=== PATIENT | female | born 1995 | race Caucasian/White ===

== ENCOUNTER 2017-07-30 21:06 | Emergency (ER) | payer BC ==
[2017-07-30 21:17] VITALS: BP 132/89
--- NOTE | 2017-07-30 21:39 | EDM.PDOC ---
ED HPI GENERAL MEDICAL PROBLEM - General Chief Complaint: Chest Pain Stated Complaint: CHEST PAIN Time Seen by Provider: 07/30/17 21:39 Source of Information: Reports: Patient History Limitations: Reports: No Limitations - History of Present Illness INITIAL COMMENTS - FREE TEXT/NARRATIVE: 22-year-old female presents the ED with development of left-sided precordial chest pain rather suddenly while she was at her father's 60th birthday alliance party tonight. It did not seem to have any radiation. It is eased up substantially since she came to the ED. She had associated symptoms of feeling of her heart racing shortness of breath and numbness and tingling in her hands and feet.she' s recently been identified to have a early first trimester with a positive home test last week. She feels she would be before to 5 weeks gestation. She will be 2 para 1 and she has a 5-year-old at home. Denies cough or sputum production. Does have positive with esophageal reflux and has been using medication for this recently. Pain however seemed to be more of a pressure discomfort and no burning. 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: Other (see below) (see history of present illnessnone.) Left Chest Pain Score (Numeric/FACES): 2 - Related Data Allergies Allergy/AdvReac Type Severity Reaction Status Date / Time No Known Allergies Allergy Verified 01/28/16 19:24 Home Meds: Home Meds Escitalopram [Lexapro] 10 mg PO DAILY 07/30/17 [History] LORazepam [Ativan] 1 mg PO Q8H PRN #2 tablet 07/30/17 [Rx] LORazepam [Ativan] 1 mg PO Q8H PRN #2 tablet 07/30/17 [Rx] Past Medical History - Past Health History Medical/Surgical History: Denies 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 Denies: Fever, Chills, Malaise, Weakness, Weight Loss HEENT: Reports: No Symptoms Respiratory: Reports: Shortness of Breath, Cough. Denies: Wheezing, Pleuritic Chest Pain Cardiovascular: Reports: Chest Pain. Denies: Blood Pressure Problem (she has to present illness), Claudication, Dyspnea on Exertion, Edema, Orthopnea, Palpitations Endocrine: Reports: Fatigue GI/Abdominal: Reports: No Symptoms : Reports: Frequency Musculoskeletal: Reports: No Symptoms Skin: Reports: No Symptoms Neurological: Reports: No Symptoms Psychiatric: Reports: No Symptoms Hematologic/Lymphatic: Reports: No Symptoms Immunologic: Reports: No Symptoms ED EXAM, GENERAL - Physical Exam Exam: See Below Exam Limited By: No Limitations General Appearance: Alert, WD/WN, No Apparent Distress Eye Exam: Bilateral Eye: Normal Inspection Neck: Normal Inspection, Supple, Non-Tender, Full Range of Motion. No: Lymphadenopathy (L), Lymphadenopathy (R) Respiratory/Chest: No Respiratory Distress, Lungs Clear, Normal Breath Sounds, No Accessory Muscle Use Cardiovascular: Normal Peripheral Pulses, Regular Rate, Rhythm, No Edema, No Gallop, No Murmur Peripheral Pulses: 3+: Posterior Tibial (L), Posterior Tibial (R), Dorsalis Pedis (L), Dorsalis Pedis (R) GI/Abdominal: Normal Bowel Sounds, Soft, Non-Tender, No Organomegaly, No Distention, No Abnormal Bruit, No Mass, Pelvis Stable Back Exam: Normal Inspection, Full Range of Motion. No: CVA Tenderness (L), CVA Tenderness (R) Extremities: Normal Inspection, Normal Range of Motion, Non-Tender, No Pedal Edema Neurological: Alert, Oriented, CN II-XII Intact, Normal Cognition, Normal Gait Psychiatric: Normal Affect, Normal Mood Skin Exam: Warm, Dry, Intact, Normal Color, No Rash Course - Vital Signs Last Recorded V/S: Last Vital Signs Temp 36.6 C 07/30/17 21:15 Pulse 107 H 07/30/17 21:15 Resp 20 07/30/17 21:15 BP 132/89 07/30/17 21:15 Pulse Ox 99 07/30/17 21:15 - Radiology Interpretation Free Text/Narrative:: 22-year-old female presents the ED with sudden onset of left precordial chest pressure discomfort. This is associate with feeling of heart racing shortness of breath and numbness and tingling in her hands and feet. Examination is completely normal. She is recently identified that she is by home prick C testing and estimates that she's 4-5 weeks gestation. Patient reassured this appears to be more of an anxiety-like reaction and it's much improved at the time of my examination is compared to when she presented. Does take Lexapro on a daily basis for anxiety relief. Clear what the trigger was tonight. At any rate she's feeling improved and I did not pursue further investigations. To complete a normal sets of 100%. She has to still tachycardic with a resting heart rate 1 15/m. Plan I Citroma to Ativan 1 mg tablets to be used if things don't settle down or she develops further anxiety attack. He'll follow-up with her personal physician if any further problem's occur. Departure - Departure Time of Disposition: 22:03 Disposition: Home, Self-Care 01 Condition: Fair Clinical Impression: Non-cardiac chest pain, Anxiety reaction, First trimester Prescriptions: LORazepam [Ativan] 1 mg PO Q8H PRN #2 tablet PRN Reason: anxiety attack LORazepam [Ativan] 1 mg PO Q8H PRN #2 tablet PRN Reason: anxiety attack. Instructions: Panic Attacks, [id number], Nonspecific Chest Pain, [id number] Referrals: Ines Sibley PA [Primary Care Provider] - Forms: ED Department Discharge Additional Instructions: evaluation in the emergency room tonight in regards to development of left- sided precordial chest pressure discomfort for no good reason. Associated rapid heart rate in the 120s and feeling of shortness of breath. Examination was completely normal. You appear to have suffered an anxiety attack. You're feeling somewhat better at the time of my examination. There is poor Fei no relationship to the early first trimester . Suggest home to bed. Often this will break the anxiety cycle. If needed may take Ativan tablets 1 mg which takes about a half an hour to work. It is safe to use in . May be taken every 8 hours if needed. 2 tablets were sent home with you from the emergency room [place]. Follow-up with personal doctor if symptoms continue.
[2017-07-30] MEDS ORDERED: LORazepam 1 MG Tab ONE (22:31)
== END 2017-07-30 22:28 | disposition home or self-care (01) ==
LOC: JD.ED 21:06
DX: O99.341 Other mental disorders complicating pregnancy, first trimester (principal); F41.9 Anxiety disorder, unspecified; R07.89 Other chest pain; Z79.899 Other long term (current) drug therapy; Z3A.01 Less than 8 weeks gestation of pregnancy
CPT/HCPCS: 99284; A9270; 99283

== ENCOUNTER 2018-03-14 19:18 | Inpatient (IN) | payer BC ==
[2018-03-14] MEDS ORDERED: Sodium Chloride 0.9% 10 ML Syringe FLUSH PRN (22:14)
[2018-03-14] MEDS ORDERED: Lactated Ringers 1,000 ML IV SCH (22:15)
[2018-03-14] MEDS ORDERED: Ampicillin 2 GM in Sodium Chloride 0.9% 100 ML IV ONE (22:30)
[2018-03-15] MEDS: Ampicillin 1 GM in Sodium Chloride 0.9% 100 ML IV SCH ×2 (03:32→10:13)
--- NOTE | 2018-03-15 07:15 | HP ---
DATE OF ADMISSION: 03/14/2018 ADMISSION DIAGNOSIS: 37 and 4/7th week intrauterine , active labor with cervical change. HISTORY OF PRESENT ILLNESS: The patient is a 23-year-old, 2, para 1-0-0-1 white female who was admitted on 03/15/2018 in what appeared to be early labor. The patient started in labor on the afternoon of 03/14/2018 and was monitored in Labor and Delivery for approximately 6 to 8 hours over which time she changed her cervix from a previous dilation of 4 cm in clinic to 6 cm. She is chato every 3 to 5 minutes, moderate intensity, lasting for 45 to 60 seconds. heart tones are reassuring. Her TATIANNA is 04/01/2018 as based upon a certain last menstrual period which started 06/25/2017 and supported by an ultrasound done on 08/11/2017 at 6 and 7th week gestational age. heart tones are reassuring. Risk factors for the include the fact that she has a baby with a 2 vessel umbilical cord. She has been monitored antenatally with biophysical profiles weekly for this. She has shown no evidence of intrauterine growth restriction or other concerns. anatomy has been felt to be normal by ultrasound evaluation. 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 Certain last menstrual period started 06/25/2015. Cycles come q.28 days. She had menarche at age 8. Positive HCG was on 07/27/2015. Previous resulted in a delivery on 06/03/2012 at 40 weeks' gestational age, 9 hours of labor-7 pounds 15 ounces female infant delivered vaginally. Child's name is Kristina. This was first evaluated at 6 and 7th weeks' gestational age. She had regular care. Her weight gain has been from approximately 216 pounds at her first visit up to 232.4 pounds for a 16 pound weight gain. Her vital signs have been stable throughout the and her fundal height growth has been appropriate. Risk factors have included the two-vessel cord, anxiety, and . The patient did have [place] testing done and these were negative for any genetic defect. She is group B strep positive. Her [place] depression screen score on 11/16/2017 was 3/30. The patient had been on escitalopram but was weaned off this by 36 weeks gestational age. She did receive her Tdap immunization on 03/10/2018. Laboratory testing in shows blood to be O positive with a negative antibody screen. Hemoglobin at first visit was 12.3 g/dL and platelets were 415. Her Pap smear was negative. She is rubella immune. RPR is nonreactive. Urine culture was negative at that time. Hepatitis B surface antigen and HIV assays were both negative. Gonorrhea and chlamydia assays were both negative. Her 1-hour GTT on 01/05/2018 was 108, which was normal. Her second trimester hemoglobin was 10.3 g/dL and platelets were 390. At that time, the patient was started on iron therapy in addition to her vitamins. Group B strep screen was positive. The patient is not allergic to penicillin. ALLERGIES: None. CURRENT MEDICATIONS: 1. Ferrous sulfate 325 mg p.o. daily. 2. vitamins 1 p.o. daily. PAST MEDICAL HISTORY: 1. Normal spontaneous vaginal delivery x1. 2. Anxiety. PAST SURGICAL HISTORY: Unremarkable. FAMILY HISTORY: The patient has 1 daughter age 5, alive and well. One brother alive and well. Mother is alive and well, but has hypertension. Father is alive and well with the exception of hypertension and type 2 diabetes. Maternal grandmother last year secondary to an MD. Maternal grandfather secondary to lung cancer. Paternal grandmother secondary to what was suspected to be breast cancer. Paternal grandfather is alive with some type of health problems including having had a stroke sometime ago. Maternal uncles and aunts healthy with the exception of 1 uncle secondary to an MD thought to be secondary to a clot from shoulder surgery. Paternal aunts and uncles all alive and healthy. SOCIAL HISTORY: The patient is single. She does not use any significant amounts of alcohol, drugs, or tobacco. She lives in [place]. REVIEW OF SYSTEMS: GENERAL: The patient is doing very well. She is having contractions which have intensified. Baby has been active. SKIN: Negative. LUNGS: No infectious symptoms or shortness of breath. CARDIOVASCULAR: No chest pain or exercise intolerance. BREASTS: Changes associated with only. The patient plans to breastfeed. GI: Negative. : Increase in fundal height. Baby has been active. EXTREMITIES/MUSCULOSKELETAL: Occasional edema, but generally negative. NEUROLOGICAL: The patient has somewhat of a nervous tic involving her facial expression. PHYSICAL EXAMINATION: GENERAL: The patient is a well-developed, well-nourished, pleasant female, stated age, in no acute distress. Has a facial tic that is expressed very often. VITAL SIGNS: Blood pressure 129/68. Weight of 232.4 pounds. Height is 5 feet 4 inches and pregravid weight was 222 pounds. Her pregravid body mass index was 38.1. SKIN: Warm, dry, without lesions. LUNGS: Clear with good breath sounds in all lung [place]. HEENT, NECK, AND BACK: Within normal limits. CARDIOVASCULAR: Shows regular rate and rhythm without murmurs. ABDOMEN: Protuberant with with last fundal height in clinic at 36.5 cm with baby in a vertex presentation. PELVIS: Previous cervical exam showed cervix to be 4 cm, 80% effaced, very soft, -3 station, anterior position. It has now changed to 6 cm, 90% effaced, - 2 station, anterior, very soft, bulging bag of flores is ruptured resulting in clear amniotic fluid. EXTREMITIES: Show no significant edema at this time. NEUROLOGICAL: The patient has a facial tic, otherwise it is unremarkable. ASSESSMENT: 1. Term intrauterine at 37 and 4/7th weeks' gestational age with an TATIANNA of 04/01/2018, now in active labor with significant cervical change. 2. Group B strep positive status. The patient has received 2 doses of ampicillin at this time. 3. The patient desiring epidural in labor. 4. Rubella is immune. 5. The patient plans to breastfeed. PLAN: 1. Anticipate normal spontaneous vaginal delivery. 2. Epidural p.r.n. per patient's desire. 3. CBC. 4. Support decision. MMODAL /[id number]
[2018-03-15] MEDS ORDERED: fentaNYL 100 MCG/2 ML SDV EPIDUR PRN (07:23)
[2018-03-15] MEDS ORDERED: Ondansetron 4 MG/2 ML SDV IVPUSH PRN (07:23)
[2018-03-15] MEDS ORDERED: ePHEDrine 50 MG/ML SDV IVPUSH PRN (07:23)
[2018-03-15] MEDS ORDERED: diphenhydrAMINE 50 MG/ML SDV IVPUSH PRN (07:23)
[2018-03-15] MEDS ORDERED: Ampicillin 1 GM in Sodium Chloride 0.9% 100 ML IV SCH (07:30)
[2018-03-15] MEDS ORDERED: Bupivacaine/fentaNYL/NS 100 ML Bag EPIDUR SCH (07:30)
[2018-03-15] MEDS ORDERED: Lidocaine 1% 50 ML MDV ONE (07:32)
[2018-03-15] MEDS ORDERED: Witch Hazel Medicated Pads 100/Jar TOP PRN (08:21)
[2018-03-15] MEDS ORDERED: Benzocaine/Menthol 20%-0.5% Spray 56 GM Canister TOP PRN (08:21)
[2018-03-15] MEDS ORDERED: Lanolin 100% Cream 7 GM Tube TOP PRN (08:21)
[2018-03-15] MEDS ORDERED: Acetaminophen 325 MG Tab PO PRN (08:21)
--- NOTE | 2018-03-15 08:23 | PCM.SN ---
- Free Text/Narrative Note: Nina is a 23-year-old 2 now para 2002 white female who was admitted on in early active labor. Started labor on the afternoon of 03/15/2018. She has an TATIANNA of 04/01/2018 placing her at 37-4/7 weeks gestational age at the time of her delivery. Progressed throughout the evening and night and became completely dilated at approximately 0700 hrs. on 03/15/2018. Membranes had been ruptured at approximately 0530 hrs. She was be strep positive and received antibiotics per protocol. She received 3 doses of antibiotics at the time of delivery. The patient delivered at 0731 hrs. a viable, ramírez, male with Apgars of 8 and 9, a length of 20.5 inches, a weight of 3190 g (7 pounds 0.5 ounces) in a right occiput anterior position. There was a nuchal cord 1 which was loose and was reduced over the baby's head. Local cord had 2 vessels. This was known prior to the delivery. Cord bloods obtained. Placenta was then delivered at 0734 hrs. in a [place] presentation. It appeared intact and complete and was discarded per patient desire. Two-vessel cord was confirmed. Small first-degree right vaginal perineal laceration was repaired with 3-0 Monocryl in a routine fashion. No anesthetic was used. Estimated blood loss was 100 mL. Patient plans to breast-feed. Condition: Good
[2018-03-15] MEDS: Ibuprofen 600 MG Tab PO PRN ×2 (08:50→17:49)
[2018-03-15] MEDS: Docusate Sodium 100 MG Cap PO PRN ×2 (08:51→17:49)
[2018-03-15] MEDS ORDERED: Oxytocin/Lactated Ringers 20 UNIT/1,000 ML BAG IV SCH ×2 (10:30→11:45)
[2018-03-15] MEDS ORDERED: Oxytocin/Lactated Ringers 10 UNIT/1,000 ML BAG IV SCH (11:45)
[2018-03-16] MEDS: Ibuprofen 600 MG Tab PO PRN ×2 (01:22→15:45)
--- NOTE | 2018-03-16 05:56 | PCM.SN ---
- Free Text/Narrative Note: note: Patient is doing well in the period. Minimal lochia, voiding well, ambulated without problems. Nursing without concerns. Patient is afebrile, vital signs are stable Abdomen is flat, soft, uterus is below the umbilicus and is firm and nontender. Legs are nontender. Assessment: recovery going well. Hemoglobin to be done this morning. Plan: Routine care. Patient be discharged home within the next 24- 48 hours.
[2018-03-16] MEDS: Docusate Sodium 100 MG Cap PO PRN (07:57)
--- NOTE | 2018-03-16 15:30 | PCM.DCSUM1 ---
Discharge Summary - Hospital Course Free Text/Narrative:: Nina is a 23-year-old 2 now para 2002 white female who was admitted on in early active labor. Started labor on the afternoon of 03/15/2018. She has an TATIANNA of 04/01/2018 placing her at 37-4/7 weeks gestational age at the time of her delivery. Progressed throughout the evening and night and became completely dilated at approximately 0700 hrs. on 03/15/2018. Membranes had been ruptured at approximately 0530 hrs. She was be strep positive and received antibiotics per protocol. She received 3 doses of antibiotics at the time of delivery. The patient delivered at 0731 hrs. a viable, ramírez, male with Apgars of 8 and 9, a length of 20.5 inches, a weight of 3190 g (7 pounds 0.5 ounces) in a right occiput anterior position. There was a nuchal cord 1 which was loose and was reduced over the baby's head. Local cord had 2 vessels. This was known prior to the delivery. Cord bloods obtained. Placenta was then delivered at 0734 hrs. in a [place] presentation. It appeared intact and complete and was discarded per patient desire. Two-vessel cord was confirmed. Small first-degree right vaginal perineal laceration was repaired with 3-0 Monocryl in a routine fashion. No anesthetic was used. Estimated blood loss was 100 mL. Patient plans to breast-feed. patient is done well. She is ambulating well, nursing without problems and voiding without concerns. Patient has been afebrile. She is desiring discharge home. - Discharge Data Discharge Date: 03/16/18 Discharge Disposition: [facility] Condition: Good - Patient Instructions Diet: Regular Diet as Tolerated (nursing diet with increase calories and calcium as recommended) Activity: As Tolerated (No intercourse or tampons until bleeding resolves) Driving: Do Not Drive (Do not drive for 2 days.) Showering/Bathing: May Shower (May take a bath) Notify Provider of: Fever, Increased Pain, Swelling and Redness, Nausea and/or Vomiting - Discharge Plan Home Medications: Home Meds Acetaminophen [Tylenol] 650 mg PO Q4H PRN tablet 03/16/18 [Rx] Ibuprofen [Motrin] 600 mg PO Q4H PRN tablet 03/16/18 [Rx] Patient Handouts: Care After Vaginal Delivery Referrals: Deangelo Hernandez MD [Primary Care Provider] - (Return to clinicDr. Hernandez2 weeks.) - Discharge Summary/Plan Comment DC Time >30 min.: No Discharge Summary/Plan Comment: Discharge instructions: 1. Discharge home 2. Diet, activity and follow-up discussed with patient. Recommend nursing diet with increased calories and calcium. 3. Precautions given concern increased pain, bleeding, temperature, signs/ symptoms of DVT/PE. 4. Medications per home medication was printed, discussed with and given to the patient. 5. Return to clinic-Dr. Hernandez-[facility] in 2 weeks. Diagnosis: Term -delivered Condition: Good - Patient Data Vitals - Most Recent: Last Vital Signs Temp 36.8 C 03/16/18 09:04 Pulse 97 03/16/18 09:04 Resp 16 03/16/18 09:04 BP 137/71 03/16/18 09:04 Pulse Ox 97 03/16/18 09:04 Weight - Most Recent: 105.687 kg I&O - Last 24 hours: Intake & Output 03/16/18 03/16/18 03/16/18 06:59 14:59 22:59 Intake Total 360 Balance 360 Lab Results - Last 24 hrs: Laboratory Results - last 24 hr 03/16/18 Range/Units 05:38 WBC 9.45 (3.98-10.04) K/mm3 RBC 3.88 L (3.98-5.22) M/mm3 Hgb 10.7 L (11.2-15.7) gm/L Hct 32.5 L (34.1-44.9) % MCV 83.8 (79.4-94.8) fl MCH 27.6 (25.6-32.2) pg MCHC 32.9 (32.2-35.5) g/dl RDW Std Deviation 39.2 (36.4-46.3) fL Plt Count 315 (182-369) K/mm3 MPV 11.3 (9.4-12.3) fl Med Orders - Current: Current Medications Acetaminophen (Tylenol) 650 mg PO Q4H PRN PRN Reason: mild pain or fever Benzocaine/Menthol (Dermoplast Pain Relief [place]) 0 gm TOP ASDIRECTED PRN PRN Reason: Perineal Comfort Measure Docusate Sodium (Colace) 100 mg PO BID PRN PRN Reason: Constipation Last Admin: 03/16/18 07:57 Dose: 100 mg Emollient Ointment (Lansinoh Hpa) 0 gm TOP ASDIRECTED PRN PRN Reason: Sore Nipples Oxytocin/Lactated Ringer's (Pitocin In Lr 10 Units/1,000 Ml) 10 unit in 1,000 mls @ 500 mls/hr IV ASDIRECTED [facility]; Protocol Last Admin: 03/15/18 07:31 Dose: 500 mls/hr Ibuprofen (Motrin) 600 mg PO Q4H PRN PRN Reason: Mild pain or fever Last Admin: 03/16/18 01:22 Dose: 600 mg Witch Agnes (Tucks) 1 pad TOP ASDIRECTED PRN PRN Reason: Hemorrhoid pain Discontinued Medications Diphenhydramine HCl (Benadryl) 25 mg IVPUSH Q6H PRN PRN Reason: Pruritis Ephedrine Sulfate (Ephedrine Sulfate) 5 mg IVPUSH ASDIRECTED PRN PRN Reason: Hypotension Fentanyl (Sublimaze) 100 mcg EPIDUR ONETIME PRN PRN Reason: Pain Fentanyl/Bupivacaine HCl (Fentanyl/Bupivacaine/Ns 2 Mcg-0.125% 100 Ml) 100 ml EPIDUR ASDIRECTED [facility] Ampicillin Sodium 2 gm/ Sodium (Chloride) 100 mls @ 200 mls/hr IV ONETIME ONE Stop: 03/14/18 22:59 Last Admin: 03/14/18 22:54 Dose: 200 mls/hr Ampicillin Sodium 1 gm/ Sodium (Chloride) 100 mls @ 200 mls/hr IV Q4H [facility] Last Admin: 03/15/18 10:13 Dose: 200 mls/hr Lactated Ringer's (Ringers, Lactated) 1,000 mls @ 100 mls/hr IV ASDIRECTED [facility] Last Admin: 03/14/18 22:57 Dose: 100 mls/hr Ampicillin Sodium 1 gm/ Sodium (Chloride) 100 mls @ 200 mls/hr IV Q4H [facility] Oxytocin/Lactated Ringer's (Pitocin In Lr 20 Units/1,000 Ml) 20 unit in 1,000 mls @ 3,000 mls/hr IV TITRATE IGOR Oxytocin/Lactated Ringer's (Pitocin In Lr 20 Units/1,000 Ml) 20 unit in 1,000 mls @ 500 mls/hr IV ASDIRECTED [facility]; Protocol Lidocaine HCl (Xylocaine 1%) Confirm Administered Dose 50 ml .ROUTE .[employer] ONE Stop: 03/15/18 07:33 Ondansetron HCl (Zofran) 4 mg IVPUSH ONETIME PRN PRN Reason: Nausea/Vomiting Sodium Chloride (Saline Flush) 10 ml FLUSH ASDIRECTED PRN PRN Reason: Keep Vein Open
[2018-03-16 16:00] VITALS: BP 122/89
== END 2018-03-16 18:52 | disposition designated cancer center or children's hospital (05) | DRG 560 ==
LOC: JD.OBCHECK 19:18 → JD.OB 19:18 → JD.OBCHECK 19:56 → JD.OB 19:57 → OBSVTOIN 03-15 07:31 → JD.OB 03-15 07:32
PROVIDERS: ADMIT Obstetrics & Gynecology; ATTEND Obstetrics & Gynecology
PROC: 10E0XZZ Delivery of Products of Conception, External Approach (ICD-10-PCS; principal; 2018-03-15)
PROC: 0HQ9XZZ Repair Perineum Skin, External Approach (ICD-10-PCS; 2018-03-15)
DX: O60.23X0 Term delivery with preterm labor, third trimester, not applicable or unspecified (principal); Z3A.37 37 weeks gestation of pregnancy; Z37.0 Single live birth; O70.0 First degree perineal laceration during delivery; O69.81X0 Labor and delivery complicated by cord around neck, without compression, not applicable or unspecified; O99.824 Streptococcus B carrier state complicating childbirth
CPT/HCPCS: 36415; 59025; 59300; 59409; 85025; 85027; A9270-GY; J0290; J2590; J7030; J7120

== ENCOUNTER 2018-06-06 15:46 | Emergency (ER) | payer BC ==
[2018-06-06 15:56] VITALS: BP 152/95
--- NOTE | 2018-06-06 16:22 | EDM.PDOC ---
ED HPI GENERAL MEDICAL PROBLEM - General Chief Complaint: Chest Pain Stated Complaint: FEVER/CHEST PAIN Time Seen by Provider: 06/06/18 16:01 Source of Information: Reports: Patient History Limitations: Reports: No Limitations - History of Present Illness INITIAL COMMENTS - FREE TEXT/NARRATIVE: The patient is a 23-year-old female with a history of anxiety who is also about 6 weeks who presents with left-sided chest pain. 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 She had sharp pain in the left side of her chest. The pain has been coming and going throughout the day today. There is no provoking or relieving factor. When she gets the pain it seems to last minutes and then resolves. No shortness of breath. No pain with inspiration. No cough or fever. No lower extremity pain or swelling. She did also start taking control tablets in the last week or so. No abdominal pain, vomiting, diarrhea, or urinary symptoms. States that she does have a history of anxiety and has had chest pain associated with that in the past. She is feeling slightly anxious but not to the point where she is like any medication for it. Denies depression symptoms. She is not breast-feeding. 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: vaginal child Psychiatric History: Reports: Anxiety Social & Family History - Family History Family Medical History: Noncontributory - Tobacco Use Smoking Status *Q: Never Smoker - Caffeine Use Caffeine Use: Reports: None - Recreational Drug Use Recreational Drug Use: No - Living Situation & Occupation Living situation: Reports: Occupation: Employed ED ROS GENERAL - Review of Systems Review Of Systems: See Below Constitutional: Denies: Fever HEENT: Reports: No Symptoms Respiratory: Denies: Shortness of Breath Cardiovascular: Reports: Chest Pain Endocrine: Reports: No Symptoms GI/Abdominal: Denies: Abdominal Pain : Reports: No Symptoms Musculoskeletal: Reports: No Symptoms Skin: Reports: No Symptoms Neurological: Reports: No Symptoms Psychiatric: Reports: Anxiety Hematologic/Lymphatic: Reports: No Symptoms Immunologic: Reports: No Symptoms ED EXAM, GENERAL - Physical Exam Exam: See Below Exam Limited By: No Limitations General Appearance: Alert, WD/WN, No Apparent Distress Eye Exam: Bilateral Eye: Normal Inspection Ears: Normal External Exam Nose: Normal Inspection Throat/Mouth: Normal Inspection, Normal Oropharynx, Normal Voice, No Airway Compromise Head: Atraumatic, Normocephalic Neck: Normal Inspection, Supple, Non-Tender, Full Range of Motion Respiratory/Chest: No Respiratory Distress, Lungs Clear, Normal Breath Sounds, No Accessory Muscle Use, Chest Non-Tender Cardiovascular: Regular Rate, Rhythm, No Edema, No Murmur, Tachycardia GI/Abdominal: Soft, Non-Tender, No Distention Extremities: Normal Inspection. No: Pedal Edema, Leg Pain Neurological: Alert, Oriented, Normal Cognition, No Motor/Sensory Deficits Psychiatric: Normal Affect, Normal Mood Skin Exam: Warm, Dry, Intact, Normal Color, No Rash Course - Vital Signs Last Recorded V/S: Last Vital Signs Temp 36.9 C 06/06/18 15:53 Pulse 120 H 06/06/18 15:53 Resp 18 06/06/18 15:53 BP 152/95 H 06/06/18 15:53 Pulse Ox 99 06/06/18 15:53 - Orders/Labs/Meds Orders: Active Orders 24 hr Category Date Time Status EKG 12 Lead [EKG Documentation Completion] [RC] STAT Care 06/06/18 16:01 Active Chest 2V [CR] Stat Exams 06/06/18 16:01 Taken Sodium Chloride 0.9% [Saline Flush] Med 06/06/18 17:53 Active 10 ml FLUSH ONETIME PRN Medication Orders Sodium Chloride (Saline Flush) 10 ml FLUSH ONETIME PRN PRN Reason: IV Flush Last Admin: 06/06/18 18:13 Dose: 10 ml Labs: Laboratory Tests 06/06/18 06/06/18 06/06/18 Range/Units 16:30 16:30 16:30 WBC 10.13 H (3.98-10.04) K/mm3 RBC 4.64 (3.98-5.22) M/mm3 Hgb 12.7 (11.2-15.7) gm/L Hct 38.3 (34.1-44.9) % MCV 82.5 (79.4-94.8) fl MCH 27.4 (25.6-32.2) pg MCHC 33.2 (32.2-35.5) g/dl RDW Std Deviation 39.8 (36.4-46.3) fL Plt Count 521 H (182-369) K/mm3 MPV 9.9 (9.4-12.3) fl Neut % (Auto) 70.3 (34.0-71.1) % Lymph % (Auto) 22.8 (19.3-51.7) % Bullitt % (Auto) 6.4 (4.7-12.5) % Eos % (Auto) 0.1 L (0.7-5.8) Baso % (Auto) 0.2 (0.1-1.2) % Neut # (Auto) 7.12 H (1.56-6.13) K/mm3 Lymph # (Auto) 2.31 (1.18-3.74) K/mm3 Bullitt # (Auto) 0.65 H (0.24-0.36) K/mm3 Eos # (Auto) 0.01 L (0.04-0.36) K/mm3 Baso # (Auto) 0.02 (0.01-0.08) K/mm3 D-Dimer, Quantitative 0.60 H (0.19-0.50) mg/L Sodium 139 (136-145) mEq/L Potassium 3.5 (3.5-5.1) mEq/L Chloride 101 (98-107) mEq/L Carbon Dioxide 25 (21-32) mEq/L Anion Gap 16.5 H (5-15) BUN 10 (7-18) mg/dL Creatinine 0.9 (0.55-1.02) mg/dL Est Cr Clr Drug Dosing 82.51 mL/min Estimated GFR (MDRD) > 60 (>60) mL/min BUN/Creatinine Ratio 11.1 L (14-18) Glucose 97 (74-106) mg/dL Calcium 10.5 H (8.5-10.1) mg/dL Magnesium 1.9 (1.8-2.4) mg/dl Total Bilirubin 0.4 (0.2-1.0) mg/dL AST 21 (15-37) U/L ALT 32 (14-59) U/L Alkaline Phosphatase 101 (46-116) U/L Troponin I < 0.017 (0.00-0.056) ng/mL Total Protein 9.1 H (6.4-8.2) g/dl Albumin 4.0 (3.4-5.0) g/dl Globulin 5.1 gm/dL Albumin/Globulin Ratio 0.8 L (1-2) TSH 3rd Generation 2.486 (0.358-3.74) uIU/mL Meds: Medications Generic Name Dose Route Start Last Admin Trade Name Freq PRN Reason Stop Dose Admin Sodium Chloride 10 ml 06/06/18 17:53 06/06/18 18:13 Saline Flush FLUSH 10 ml ONETIME PRN Administration IV Flush Discontinued Medications Generic Name Dose Route Start Last Admin Trade Name Freq PRN Reason Stop Dose Admin Sodium Chloride 100 mls @ 4 mls/sec 06/06/18 17:53 06/06/18 18:13 Normal Saline IV 06/06/18 17:54 4 mls/sec ONETIME ONE Administration Iopamidol 100 ml 06/06/18 17:53 06/06/18 18:12 Isovue-370 (76%) IVPUSH 06/06/18 17:54 100 ml ONETIME ONE Administration Iopamidol 40 ml 06/06/18 17:53 06/06/18 18:12 Isovue-370 (76%) IVPUSH 06/06/18 17:54 40 ml ONETIME ONE Administration - Re-Assessments/Exams Free Text/Narrative Re-Assessment/Exam: 06/06/18 16:28 EKG shows sinus tachycardia she does have an inverted T-wave in lead 3, no additional ST abnormality. Chest x-ray shows no acute abnormality. Labs including d-dimer are pending. 06/06/18 17:13 d-d positive at 0.6. Will proceed with CTA chest. Departure - Departure Time of Disposition: 19:03 Disposition: Home, Self-Care 01 Clinical Impression: Chest pain Qualifiers: Chest pain type: unspecified Qualified Code(s): R07.9 - Chest pain, unspecified Referrals: PCP,None [Primary Care Provider] - Forms: ED Department Discharge Additional Instructions: 1. Your labs and CT scan of your chest today were normal. 2. Your thyroid is mildly enlarged. We recommend you see your regular doctor for ultrasound of your thyroid to further evaluate. Your thyroid hormone level test today was normal. 2. Follow up with your regular doctor as needed for further care. 3. Return to the ED if you have worsening chest pain, difficulty breathing, or any other concerning symptoms. - My Orders Last 24 Hours: My Active Orders 06/06/18 16:01 EKG 12 Lead [EKG Documentation Completion] [RC] STAT Chest 2V [CR] Stat 06/06/18 17:53 Sodium Chloride 0.9% [Saline Flush] 10 ml FLUSH ONETIME PRN - Assessment/Plan Last 24 Hours: My Active Orders 06/06/18 16:01 EKG 12 Lead [EKG Documentation Completion] [RC] STAT Chest 2V [CR] Stat 06/06/18 17:53 Sodium Chloride 0.9% [Saline Flush] 10 ml FLUSH ONETIME PRN
[2018-06-06] MEDS ORDERED: Sodium Chloride 0.9% 10 ML Syringe FLUSH PRN (17:53)
[2018-06-06] MEDS ORDERED: Iopamidol 755 Mg/ML 100 ML Bottle IVPUSH ONE (17:53)
[2018-06-06] MEDS ORDERED: Sodium Chloride 0.9% 100 ML IV ONE (17:53)
[2018-06-06] MEDS ORDERED: Iopamidol 755 MG/ML 50 ML Bottle IVPUSH ONE (17:53)
--- NOTE | 2018-06-06 18:59 | CT ---
Chest CT Technique: Multiple axial sections were obtained through the chest. Intravenous contrast was utilized. Study has been performed as a pulmonary angiogram protocol. Findings: Enlarged left lobe of the thyroid gland is noted. Mediastinum and hilar regions show no adenopathy or mass. No pericardial thickening is seen. Pulmonary arteries are fairly well-opacified and show no filling defects to indicate pulmonary embolism. Small portion of the visualized upper abdominal structures are within normal limits. Lungs are clear. No acute parenchymal densities are seen. Small focal area of oligemia is noted within the right upper lung believed to be incidental. Bone window settings were reviewed which appear within normal limits for the patient's age. Impression: 1. No findings of pulmonary embolism. 2. Enlarged left lobe of the thyroid gland. Nonemergent thyroid ultrasound recommended to further evaluate. 3. Other incidental finding as noted above. Diagnostic code #3
--- NOTE | 2018-06-07 07:01 | CR ---
Chest: Two views of the chest were obtained. Comparison: Prior chest x-ray of 01/28/16. Heart size and mediastinum are normal. Lungs are clear. Bony structures are within normal limits. Impression: 1. Nothing acute is seen on two-view chest x-ray. Diagnostic code #1
== END 2018-06-06 19:14 | disposition home or self-care (01) ==
LOC: JD.ED 15:46
DX: R07.9 Chest pain, unspecified (principal); Z79.899 Other long term (current) drug therapy
CPT/HCPCS: 36415; 71046; 71275; 80053; 83735; 84443; 84484; 85025; 85379; 93005; 99285; J7030; J7050; Q9967; 93010; 99284-25

== ENCOUNTER 2021-06-29 20:03 | Emergency (ER) | payer BC, SELFPAY ==
[2021-06-29 20:22] VITALS: BP 124/95; PULSE 97
--- NOTE | 2021-06-29 20:48 | EDM.PDOC ---
ED HPI GENERAL MEDICAL PROBLEM - General Chief Complaint: General Stated Complaint: PAIN IN RT SIDE OF FACE Time Seen by Provider: 06/29/21 20:17 Source of Information: Reports: Patient History Limitations: Reports: No Limitations - History of Present Illness INITIAL COMMENTS - FREE TEXT/NARRATIVE: 26-year-old female presents the emergency department with complaints of pain to her right jaw. Patient states that she had sudden onset of pain near the lower portion of her ear that shoots down her jaw line and a lancing type of pain intermittently. She states that she was recently seen at the walk-in clinic and placed on antibiotics for questionable infected tooth. Patient states that she has been on the antibiotic for past 5 days and it has not seemed to help. She states she was seen at the dentist and evaluated and he states this is not any sort of dental pain. Patient denies any recent fever chills, she denies nausea vomiting or diarrhea. She states she is otherwise healthy. She denies any issues with swallowing or ear pain. Right Jaw Pain Score (Numeric/FACES): 2 - Related Data Allergies Allergy/AdvReac Type Severity Reaction Status Date / Time No Known Allergies Allergy Verified 06/29/21 20:22 Home Meds: Home Meds Acetaminophen [Tylenol] 650 mg PO Q4H PRN tablet 03/16/18 [Rx] Ibuprofen [Motrin] 600 mg PO Q4H PRN tablet 03/16/18 [Rx] norgestrel-ethinyl estradioL [Elinest-28 Tablet] 1 tab PO DAILY 06/06/18 [History] carBAMazepine [Tegretol] 100 mg PO BID #20 ml 06/29/21 [Rx] Past Medical History - Past Health History Medical/Surgical History: Denies Medical/Surgical History HEENT History: Reports: Other (See Below) Other HEENT History: wears glasses Gastrointestinal History: Reports: GERD 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 ED EXAM, GENERAL - Physical Exam Exam: See Below Exam Limited By: No Limitations General Appearance: Alert, WD/WN, No Apparent Distress Eye Exam: Bilateral Eye: EOMI, PERRL Ears: Normal External Exam, Hearing Grossly Normal Nose: Normal Inspection Throat/Mouth: Normal Inspection, Normal Lips, Normal Teeth, Normal Gums, Normal Oropharynx, Normal Voice, No Airway Compromise Head: Atraumatic Neck: Normal Inspection, Supple Respiratory/Chest: No Respiratory Distress, Lungs Clear, Normal Breath Sounds, No Accessory Muscle Use, Chest Non-Tender Cardiovascular: Normal Peripheral Pulses, Regular Rate, Rhythm, No Murmur GI/Abdominal: No Distention (Female) Exam: Deferred Rectal (Female) Exam: Deferred Back Exam: Normal Inspection Extremities: Normal Inspection Neurological: Alert, Oriented, CN II-XII Intact, Normal Cognition Psychiatric: Normal Affect, Normal Mood, Other (Patient does have Tourette's) Skin Exam: Warm, Dry, Intact, Normal Color, No Rash Lymphatic: No Adenopathy Course - Vital Signs Text/Narrative:: As stated above, patient presents with intermittent lancing/shooting type of pain from just below her ear radiating down her jaw. She states that time is it starts in the zygomatic area however primarily at the jawline. Time of my assessment, the patient states that she is not having the pain. However earlier today it was rated as a 10 out of a 10. I suspect that she has trigeminal neuralgia. She will be started on Tegretol 100 mg p.o. twice daily for 10 days. She will need to follow-up with her primary care provider in about 7 days time. Last Recorded V/S: Last Vital Signs Temp 97.8 F 06/29/21 20:17 Pulse 97 06/29/21 20:17 Resp 18 06/29/21 20:17 BP 124/95 H 06/29/21 20:17 Pulse Ox 97 06/29/21 20:17 Departure - Departure Time of Disposition: 20:49 Disposition: Home, Self-Care 01 Condition: Good Clinical Impression: Trigeminal neuralgia of right side of face - Discharge Information Prescriptions: carBAMazepine [Tegretol] 100 mg PO BID #20 ml Instructions: Trigeminal Neuralgia Referrals: Samia Munguia PA-C [Primary Care Provider] - Additional Instructions: You were seen in the emergency department today with complaints of pain radiating down your left jaw intermittently and a shooting/stabbing-like fashion. You likely have trigeminal neuralgia which is inflammation of the nerves of your face. Treatment for this is Tegretol 100 mg twice daily for 10 days. At that time you will need to be reevaluated by your primary care provider. Recommend you schedule an appointment to see her within 7 days. Keep in mind that while taking this medication it can reduce the effectiveness of your control medication. You will need to use a backup method of control while taking this. Should your condition worsen or change, do not hesitate returning to the emergency department. Sepsis Event Note (ED) - Focused Exam Vital Signs: Vital Signs Temp Pulse Resp BP Pulse Ox 06/29/21 20:17 97.8 F 97 18 124/95 H 97
== END 2021-06-29 20:58 | disposition home or self-care (01) ==
LOC: JD.ED 20:03
DX: G50.0 Trigeminal neuralgia (principal)
CPT/HCPCS: 99283

== ENCOUNTER 2023-12-07 08:56 | Emergency (ER) | payer BC ==
[2023-12-07 09:17] VITALS: PULSE 124
[2023-12-07] MEDS: Sodium Chloride 0.9% 1,000 ML IV STA (10:08)
[2023-12-07 10:19] LABS: BASOPHILS PERCENT AUTO 0.1 % (0.0-1.0); EOSINOPHILS PERCENT AUTO 0.1 % (0.0-6.0); HEMATOCRIT 41.5 % (37.0-47.0); HEMOGLOBIN 13.7 gm/dl (12.0-16.0); IMMATURE GRAN ABSOLUTE AUTO 0.03 K/mm3 (0.00-0.05); IMMATURE GRAN PERCENT AUTO 0.3 % (0.0-0.4); LYMPHOCYTES ABSOLUTE AUTO 1.3 K/mm3 (1.0-4.8); LYMPHOCYTES PERCENT AUTO 12.9 % (24.0-44.0); MEAN CORPUSCULAR HEMOGLOBIN 28.1 pg (28.0-32.0); MEAN PLATELET VOLUME 9.8 fl (9.4-12.3); MONOCYTES ABSOLUTE AUTO 0.5 K/mm3 (0.0-0.8); NEUTROPHILS ABSOLUTE AUTO 8.1 K/mm3 (1.8-7.7); NEUTROPHILS PERCENT AUTO 81.6 % (41.0-71.0); PLATELET COUNT,PLT 460 K/mm3 (150-400); RED BLOOD CELL COUNT 4.88 M/mm3 (4.10-5.30); WHITE BLOOD CELL COUNT,WBC 9.86 K/mm3 (3.9-11.3)
[2023-12-07 10:21] LABS: CORONAVIRUS COVID-19 NAA NEGATIVE (NEGATIVE); INFLUENZA A NAA NEGATIVE (NEGATIVE); RESPIRATORY SYNCYTIAL VIR NAA NEGATIVE (NEGATIVE)
[2023-12-07 10:46] LABS: A/G RATIO 0.8 (1-2); ALANINE AMINOTRANSFERASE,ALT 37 U/L (14-59); ALBUMIN 3.8 g/dl (3.4-5.0); ALKALINE PHOSPHATASE 107 U/L (46-116); ANION GAP 16.7 (5-15); ASPARTATE AMNIOTRANSFERASE,AST 19 U/L (15-37); BILIRUBIN TOTAL 0.4 mg/dL (0.2-1.0); BLOOD UREA NITROGEN,BUN 10 mg/dL (7-18); BUN/CREATININE RATIO 11.1 (14-18); C-REACTIVE PROTEIN 3.2 mg/dL (<1.0); CALCIUM 9.3 mg/dL (8.5-10.1); CARBON DIOXIDE,CO2 25 mEq/L (21-32); CHLORIDE,CL 100 mEq/L (98-107); CREATININE 0.9 mg/dL (0.55-1.02); ESTIMATED GFR 88 mL/min (>60); GLUCOSE RANDOM 102 mg/dL (70-99); POTASSIUM,K 3.7 mEq/L (3.5-5.1); PROTEIN TOTAL,TP 8.9 g/dl (6.4-8.2); SODIUM,NA 138 mEq/L (136-145)
[2023-12-07 11:03] LABS: APPEARANCE,URINE SLT CLOUDY (Clear); BILIRUBIN,URINE NEGATIVE (Negative); COLOR,URINE YELLOW (Yellow); GLUCOSE,URINE NEGATIVE (Negative); KETONES,URINE 3+ (Negative); LEUKOCYTE ESTERASE,URINE TRACE (Negative); NITRITE,URINE NEGATIVE (Negative); OCCULT BLOOD,URINE NEGATIVE (Negative); PROTEIN,URINE NEGATIVE (Negative); UROBILINOGEN,URINE 0.2 (0.2-1.0)
[2023-12-07 11:08] LABS: BACTERIA,URINE MODERATE /hpf (FEW); MUCUS,URINE FEW /hpf (FEW); RBC,URINE 0-5 /hpf (0-5)
[2023-12-07] MEDS: Ondansetron 4 MG/2 ML SDV IVPUSH ONE (11:36)
[2023-12-07 12:08] VITALS: BP 129/89
== END 2023-12-07 12:02 | disposition home or self-care (01) ==
LOC: JD.ED 08:56
DX: F41.9 Anxiety disorder, unspecified (principal); B34.9 Viral infection, unspecified; K21.9 Gastro-esophageal reflux disease without esophagitis
CPT/HCPCS: 0241U; 36415; 71046; 80053; 81001; 81025; 85025; 86140; 96360; 99284; J7030